=== PATIENT | male | born 1985 | race Caucasian/White ===

== ENCOUNTER 2022-09-30 15:16 | Emergency (ER) | payer SELFPAY ==
[2022-09-30 15:17] VITALS: BP 134/78; PULSE 98; RESP 18; TEMP 36; O2SAT 96; BMI 22.9
--- NOTE | 2022-09-30 15:37 | EX.ED.UPPERE ---
HPI History of Present Illness Chief Complaint: Upper Extremity Injury Detail of Chief Complaint: Left thumb infection Informant: patient Onset/Context/Timing Onset: Days Narrative Narrative: Patient present secondary to left thumb infection. He thinks he got a splinter in his thumb about 5 days ago. 2 days ago it started becoming much more painful and swollen. He is currently on Augmentin. He is going to other local ERs but states nobody will open and drain it. He 7 difficulty controlling pain and is only taking ibuprofen currently. [facility] Medical History (Updated 09/30/22 @ 16:[address] Ny Cleveland MD) Felon of finger Medical History no medical history no medical history Home Medications clindamycin HCl 150 mg capsule 300 mg PO 4X/DAY #80 caps 09/30/22 [Rx Last Taken Unknown] hydrocodone-acetaminophen 5-325mg 5mg-325mg 1 tab PO Q6H PRN pain 3 days #10 tabs 09/30/22 [Rx Last Taken Unknown] Allergy/AdvReac Type Severity Reaction Status Date / Time Penicillins [PCN] Allergy NEEDS Verified 09/30/22 15:16 FOLLOW-UP Surgical History no surgical history Social History Smoking Status: Current every day smoker tobacco type: cigarettes ROS ROS ED Constitutional Constitutional ED: Denies chills or fever(s) Eyes Eyes: Denies change in vision or discharge from eye(s) ENT ENT ED: Denies discharge from eye(s), rhinorrhea or sore throat Cardiovascular Cardiovascular: Denies chest pain or palpitations Respiratory/Chest Respiratory/Chest: Denies cough or dyspnea Gastrointestinal Gastrointestinal: Denies abdominal pain, nausea or vomiting Musculoskeletal Musculoskeletal: Reports extremity pain; Denies back pain Integumentary Reports other Details: Left thumb infection ; Denies Abrasions or rash Neurologic Neurologic: Denies headache(s) or weakness Psychiatric Psychiatric: Denies anxiety or depression Allergic/Immunologic Allergic/Immunologic ED: Denies lip swelling or urticaria EXAM Physical Exam Const Vital Signs: 09/30/22 15:17 Temperature 96.8 F L Temperature Source Temporal Pulse Rate 98 Respiratory Rate 18 Blood Pressure 134/78 H Blood Pressure Mean 96 Pulse Ox 96 Oxygen Delivery Method Room Air Positive well nourished and well developed General Appearance ED: well developed HEENT Reports normocephalic and head/scalp atraumatic Eyes PERRL and EOMs intact bilaterally Neck supple Chest Wall inspection of chest normal and palpation of chest normal Resp normal respiratory effort and clear to auscultation bilaterally Cardio regular rate and regular rhythm GI normal to inspection, nondistended, normoactive bowel sounds Palpation: soft Extremity Extremity Narrative: Left thumb edema and tenderness. Felon noted along the proximal aspect of the distal phalanx. Decreased range of motion secondary to swelling and pain. Good cap refill distally. Neuro oriented x3 Sensorium / Orientation: alert Psych mental status grossly normal MDM MDM MDM Narrative Medical decision making narrative: Lab work obtained along with left hand x-ray. Patient given Dilaudid and Zofran for pain control. Dose of IV clindamycin ordered. Lab Data Labs: Impressions Hand X-Ray 09/30/22 16:10 IMPRESSION: No acute findings. Electronically Signed: Vimal Guevara MD at 16:29 EST Reading Location ID and State: [facility] / [place] Tel , Service support , 09/30/22 16:10 Hand Min 3 Views [RAD] Stat Laboratory Results 09/30/22 15:49 Sodium 141 Potassium 4.0 Chloride 109 H Carbon Dioxide 29.0 Anion Gap 3 L BUN 14 Creatinine 0.95 Estim Creat Clear Calc 109.29 Est GFR (MDRD) Af Amer 115 Est GFR (MDRD) Non-Af 95 BUN/Creatinine Ratio 14.8 Glucose 121 H Calcium 8.8 Treatment and Re-Evaluation Narrative: Chemistry studies are unremarkable. CBC is pending at this time. Left hand x-ray per my interpretation shows soft tissue swelling along the left thumb. No soft tissue air or obvious fluid collection is noted. Patient is consented for I&D. 6 cc 1% lidocaine is used in digital block fashion. He received good anesthesia. A 1 cm incision with a #11 blade is made just distal to the interphalangeal joint. There is return of small amount of pus. Curved hemostats were used to open loculations. Wound is cleansed and dressed. Patient will be discharged with prescription for [place] and clindamycin. He is referred to hand surgery as well as local orthopedics if he is not able to make it to the hand surgeon for follow-up. Discharge Plan Triage Chief Complaint: Upper Extremity Injury ED Provider: Ny Cleveland Dx/Rx/DC Orders Clinical Impression: Nallelyangélica Instructions: ED Abscess Incision And Drainage Prescriptions: New clindamycin HCl 150 mg capsule 300 mg PO 4X/DAY Qty: 80 0RF hydrocodone-acetaminophen 5-325 mg tablet 1 tab PO Q6H PRN (Reason: pain) 3 Days Qty: 10 0RF Primary Care Provider: Care Physician,No Primary Referrals: Stephen Brambila MD [Non-Staff] - 3-5 Days if not improving Yomi Oliveros DO [Med Staff - Active Staff] - 3-5 Days if not improving Care Physician,No Primary [Primary Care Provider] - Disposition Disposition: Home, Self Care
[2022-09-30 15:57] LABS: Absolute Lymphocyte Count 1.94 X10^3/uL (0.83-4.51); Absolute Neutrophil Count 11.5 X10^3/uL (2.0-7.7); Basophil# 0.05 X10^3/uL; Basophil% 0.3 % (0-1); Eosinophils% 0.7 % (0-5); Hematocrit 42.5 % (40-54); Hemoglobin 14.4 g/dL (13.0-16.5); Lymphocyte # 1.94 X10^3/ul (0.83-4.51); Lymphocyte % 13.4 % (19-41); Mean Corp Hgb Conc 33.9 g/dL (32-36); Mean Corpuscular Hgb 31.3 pg (27.0-32.0); Mean Corpuscular Volume 92.4 fL (80-94); Mean Platelet Vol. 10.2 fl (6.2-12.0); Monocyte# 0.85 X10^3/uL; Monocyte% 5.9 % (0-10); NRBC Flagged by Analyzer 0 % (0-5); Neutrophil # 11.53 X10^3/uL (2.7-7.7); Neutrophil % 79.4 % (47-70); Platelet Count 206 K/mm3 (150-450); RBC Distribution Width CV 12.9 % (11.6-14.6); RBC Distribution Width SD 43.7 fl (35.1-43.9); White Blood Count 14.5 K/mm3 (4.4-11.0)
[2022-09-30] MEDS: Ondansetron 4 MG/2 ML Vial IV (16:01)
[2022-09-30] MEDS: HYDROmorphone 1 MG/ML Syringe 0.5 MG IV (16:01)
--- NOTE | 2022-09-30 16:10 | RAD_ITS ---
INDICATION: Infection, suspected foreign body or left thumb EXAMINATION/TECHNIQUE: X-RAY - LEFT XR Hand Min 3 Views 3 VIEWS COMPARISON: None. FINDINGS: SOFT TISSUES: No soft tissue swelling or gas. No radiopaque foreign body. BONES/JOINTS: No acute fracture. Preservation of the joint spaces. RAD/Hand Min 3 Views IMPRESSION: No acute findings. Electronically Signed: Vimal Guevara MD at 16:29 EST ,
[2022-09-30 16:11] LABS: Anion Gap 3 (5-15); BUN 14 mg/dL (7-18); BUN/Creat Ratio 14.8 RATIO (10-20); Calcium,Total 8.8 mg/dL (8.5-10.1); Chloride 109 mmol/L (98-107); Creatinine, Serum 0.95 mg/dL (0.70-1.30); EST Glomerular Filtration Rate 95 mL/min (>60); Est Glom Filt Rate - Afr Amer 115 mL/min (>60); Estimated Creatinine Clearance 109.29 ml/min; Glucose 121 mg/dL (74-106); Sodium Level 141 mmol/L (136-145)
[2022-09-30] MEDS: Lidocaine 1% (20 ml mdv) 20 ML Vial INFILT (16:38)
[2022-09-30] MEDS: Clindamycin in 0.9% Sod Chlor 600 MG/50 ML BAG 100 MG IV (16:38)
== END 2022-09-30 17:02 | disposition home or self-care (01) ==
PROVIDERS: Emergency Provider Emergency Medicine; Visit Provider Emergency Medicine
DX: L03.012 Cellulitis of left finger (principal); F17.210 Nicotine dependence, cigarettes, uncomplicated
CPT/HCPCS: 73130; 80048; 85025; 96365; 96375; 99282; J2405

== ENCOUNTER 2023-03-09 17:39 | Emergency (ER) | payer MEDICAID, SELFPAY ==
[2023-03-09 17:40] VITALS: BP 146/101; PULSE 77; RESP 16; TEMP 36.4; O2SAT 99; BMI 23.2
--- NOTE | 2023-03-09 17:45 | ED.VIS.DENTA ---
HPI History of Present Illness Chief Complaint: Dental [facility] Medical History (Updated 03/09/23 @ 18:[address] Wilian Colin, ) Felon of finger Home Medications clindamycin HCl 150 mg capsule 300 mg PO 4X/DAY #80 caps 09/30/22 [Rx Last Taken Unknown] hydrocodone-acetaminophen 5-325mg 5mg-325mg 1 tab PO Q6H PRN pain 3 days #10 tabs 09/30/22 [Rx Last Taken Unknown] clindamycin HCl 150 mg capsule 450 mg PO TID 7 days #63 caps 03/09/23 [Rx Last Taken Unknown] Allergy/AdvReac Type Severity Reaction Status Date / Time Penicillins [PCN] Allergy NEEDS Verified 03/09/23 17:41 FOLLOW-UP Social History Smoking Status: Current every day smoker tobacco type: cigarettes EXAM Physical Exam Const Vital Signs: 03/09/23 17:40 03/09/23 18:41 Temperature 97.6 F L Temperature Source Temporal Pulse Rate 77 94 Respiratory Rate 16 16 Blood Pressure 146/101 H Blood Pressure Mean 116 Pulse Ox 99 98 Oxygen Delivery Method Room Air MDM MDM MDM Narrative Medical decision making narrative: HISTORY OF PRESENT ILLNESS: 37-year-old male here for right lower jaw dental pain. The patient states he has had several days of left lower jaw pain has been constant severe and not improved by oral ibuprofen. He denies any fever. He denies contacting his dentist. He states he has allergy to penicillins. States pain is constant, severe worse with eating or drinking. REVIEW OF SYSTEMS: Pertinent positives: Dental pain Pertinent negatives: Neck stiffness, drooling, vomiting, inability to swallow PHYSICAL EXAM: Nursing triage notes reviewed, Vital signs reviewed Constitutional: please see mdm HENT: MMM, poor dentition, dental caries, no obvious abscess, no tonsillar edema, erythema, no tonsillar exudates, uvula midline Eyes: Pupils equal round and reactive to light, Extraocular muscles intact Neck: No stridor, no JVD, full neck ROM MEDICAL DECISION MAKING: Chief Complaint: Dental pain External records reviewed: No recent ED visits or hospitalizations MDM Narrative: Patient was hemodynamically stable, afebrile, [id number]. Oral exam showed poor dentition and evidence of likely dental infection. No obvious evidence of dental abscess. No evidence of peritonsillar abscess, retropharyngeal abscess, no evidence of Vel's angina or Lemierre's syndrome. Patient was treated symptomatically with oral oxycodone, clindamycin for antimicrobial prophylaxis he was given dental resources. There is no clear life-limiting etiology. The patient is appropriate for discharge home. Strict return precautions were discussed Factors affecting care: Allergy to penicillin Social determinants of health: Current every day smoker History obtained from others: None Shared decision making: I will have a discussion with the patient and or visitors regarding risk/benefits of further testing or admission. They will be made aware of of the risk/benefits inherent in this decision they will be given the opportunity to voice understanding. Consults: None Discharge Plan Triage Chief Complaint: Dental ED Provider: Wilian Colin Dx/Rx/DC Orders Clinical Impression: Dental caries Instructions: ED Dental Pain Prescriptions: New clindamycin HCl 150 mg capsule 450 mg PO TID 7 Days Qty: 63 0RF No Action clindamycin HCl 150 mg capsule 300 mg PO 4X/DAY Qty: 80 0RF hydrocodone-acetaminophen 5-325 mg tablet 1 tab PO Q6H PRN (Reason: pain) 3 Days Qty: 10 0RF Stand Alone Forms: ED Work / School Excuse Primary Care Provider: Care Physician,No Primary Referrals: Corina Lucas DO [Med Staff - Active Staff] - Care Physician,No Primary [Primary Care Provider] - Activity Restrictions/Additional Instructions: Thank you for trusting us with your care today! Please take Tylenol (2 pills, 650 mg), ibuprofen (2 pills, 400 mg) every 6 hours as needed for pain and fever control. Please take all antibiotics until course complete. Please return to the emergency department if your symptoms change or worsen. Specifically if you develop trouble swallowing, difficulty opening your mouth, drooling, swelling of the throat or if you cannot take antibiotics by mouth. Please follow with your primary care physician for further outpatient evaluation and management. Disposition Disposition: Home, Self Care Discharge Date/Time: 03/09/23 18:41
[2023-03-09] MEDS: Ibuprofen 200 MG Tablet 400 MG PO (18:25)
[2023-03-09] MEDS: Clindamycin HCl 150 MG Capsule 450 MG PO (18:26)
[2023-03-09] MEDS: oxyCODONE 5 MG Tablet PO (18:26)
[2023-03-09 18:41] VITALS: PULSE 94; RESP 16; O2SAT 98
== END 2023-03-09 18:41 | disposition home or self-care (01) ==
LOC: ED 18:10
PROVIDERS: Emergency Provider Emergency Medicine; Visit Provider Emergency Medicine
DX: K02.9 Dental caries, unspecified (principal); F17.210 Nicotine dependence, cigarettes, uncomplicated
CPT/HCPCS: 99283